=== PATIENT | male | born 1935 | race Caucasian/White ===

== ENCOUNTER 2017-08-09 10:21 | Day surgery (SDC) | payer MEDICARE, BC ==
[2017-08-09] MEDS ORDERED: Lactated Ringer's 1,000 ML IV ONE (11:20)
[2017-08-09] MEDS ORDERED: Lidocaine 2% MPF (5 ml) Inj ONE (12:08)
[2017-08-09] MEDS ORDERED: Propofol 10 mg/ml Inj (20 ML) ONE (12:08)
[2017-08-09 12:48] VITALS: BP 122/65; PULSE 69; RESP 22; TEMP 97; O2SAT 100
== END 2017-08-09 12:50 | disposition home or self-care (01) ==
LOC: H.ENDO 10:21
PROVIDERS: ATTEND Internal Medicine Gastroenterology
DX: K30 Functional dyspepsia (principal); E78.5 Hyperlipidemia, unspecified; K31.9 Disease of stomach and duodenum, unspecified; R63.0 Anorexia; R63.4 Abnormal weight loss
CPT/HCPCS: 43239; 88305; J2704; J7120

== ENCOUNTER 2017-09-12 16:28 | Emergency (ER) | payer MEDICARE, BC ==
[2017-09-12 16:54] VITALS: BP 177/70; PULSE 67; RESP 16; TEMP 97.8; O2SAT 100
[2017-09-12] MEDS ORDERED: Iohexol 240 (50 ml) PO ONE (18:44)
[2017-09-12] MEDS ORDERED: Sodium Chloride 0.9% 500 ML IV STA (18:44)
--- NOTE | 2017-09-12 18:47 | ED PDOC ---
HPI: Abdomen Time Seen by Provider: 09/12/17 18:22 Chief Complaint (Nursing): Abdominal Pain Chief Complaint (Provider): Abd pain History Per: Patient History/Exam Limitations: no limitations Onset/Duration Of Symptoms: Days (2 weeks) Current Symptoms Are (Timing): Still Present Additional Complaint(s): Abd pain for 2 weeks off and on left lower. Feels like gas. Started after his colonoscopy by Dr. Thomas. Pt. denies nausea, vomit, diarrhea, weakness, chest pain, dyspnea. No back pain. No weakness. No fever. Past Medical History Reviewed: Nursing Documentation, Vital Signs Vital Signs: Last Vital Signs Temp 97.8 F 09/12/17 16:52 Pulse 67 09/12/17 16:52 Resp 16 09/12/17 16:52 BP 177/70 H 09/12/17 16:52 Pulse Ox 100 09/12/17 22:49 - Medical History PMH: HTN - Surgical History Other surgeries: colonoscopy - Family History Family History: States: Unknown Family Hx - Living Arrangements Living Arrangements: With Family - Social History Alcohol: None Drugs: Denies - Home Medications Home Medications: Ambulatory Orders Medication Instructions Recorded Losartan [Cozaar] 1 tab PO DAILY 08/09/17 Metoprolol Succinate [Toprol XL] 1 tab PO DAILY 08/09/17 Prednisolone [Millipred] 1 tab PO DAILY 08/09/17 Valsartan [Diovan] 1 tab PO DAILY 08/09/17 amLODIPine [Norvasc] 1 tab PO DAILY 08/09/17 - Allergies Allergies/Adverse Reactions: Allergies Allergy/AdvReac Type Severity Reaction Status Date / Time No Known Allergies Allergy Verified 09/12/17 16:52 Review of Systems ROS Statement: Except As Marked, All Systems Reviewed And Found Negative Gastrointestinal: Positive for: Abdominal Pain Physical Exam - Reviewed Nursing Documentation Reviewed: Yes Vital Signs Reviewed: Yes - Physical Exam Appears: Positive for: Non-toxic, No Acute Distress Head Exam: Positive for: ATRAUMATIC, NORMAL INSPECTION, NORMOCEPHALIC Skin: Positive for: Normal Color, Warm, DRY Eye Exam: Positive for: EOMI, Normal appearance, PERRL ENT: Positive for: Normal ENT Inspection Neck: Positive for: Normal, Painless ROM Cardiovascular/Chest: Positive for: Regular Rate, Rhythm Respiratory: Positive for: CNT, Normal Breath Sounds Gastrointestinal/Abdominal: Positive for: Bowel Sounds, Soft, Tenderness (LLQ) Back: Positive for: Normal Inspection. Negative for: L CVA Tenderness, R CVA Tenderness Extremity: Positive for: Normal ROM. Negative for: Tenderness, Pedal Edema Neurologic/Psych: Positive for: Alert, Oriented - Laboratory Results Result Diagrams: 09/12/17 19:24 09/12/17 19:23 Interpretation Of Abn Labs: no acute - ECG O2 Sat by Pulse Oximetry: 100 Pulse Ox Interpretation: Normal - Progress ED Course And Treament: 2247: Stable. AAOx3. Cholelithiasis. Will get US. 2348: Stable. AAOx3. Pain free. Tolerated po. Fu with pcp and gi. Disposition - Clinical Impression Clinical Impression: Abdominal pain, Gallstone - Patient ED Disposition Is Patient to be Admitted: No Counseled Patient/Family Regarding: Studies Performed, Diagnosis, Need For Followup - Disposition Referrals: [facility] [Outside] - 09/13/17 Adonay Blankenship MD [Staff Provider] - 09/13/17 Disposition: Routine/Home Disposition Time: 23:39 Condition: STABLE Additional Instructions: Return if not better in 3 days. Instructions: Acute Abdominal Pain (ED), Gallstones (ED)
[2017-09-12] MEDS ORDERED: Iohexol 240 (50 ml) ONE (18:57)
[2017-09-12 19:25] LABS: BASO # 0.1 K/uL (0.0-0.2); BASO % 0.7 % (0.0-2.0); EOS % 0.3 % (0.0-4.0); HEMOGLOBIN 10.5 g/dL (12.0-18.0); LYMPH # 1.2 K/uL (1.0-4.3); LYMPH % 13.5 % (20.0-40.0); MEAN CELL VOLUME 91.5 fl (80.0-94.0); MEAN CORPUSCULAR HEMOGLOBIN 32.4 pg (27.0-31.0); MEAN CORPUSCULAR HGB CONC 35.4 g/dL (33.0-37.0); MEAN PLATELET VOLUME 8.9 fl (7.2-11.7); MONO # 0.6 K/uL (0.0-0.8); MONO % 6.9 % (0.0-10.0); NEUT # 6.8 K/uL (1.8-7.0); NEUT % 78.6 % (50.0-75.0); NRBC % 0.1 % (0.0-0.0); RBC 3.26 Mil/uL (4.40-5.90); RED CELL DISTRIBUTION WIDTH 16.1 % (11.5-14.5); WHITE BLOOD COUNT 8.7 K/uL (4.8-10.8)
[2017-09-12 19:35] LABS: ALB/GLOB RATIO 1.4 (1.0-2.1); ALBUMIN 4.3 g/dL (3.5-5.0); ALT/SGPT 40 U/L (21-72); AST/SGOT 33 U/L (17-59); BLOOD UREA NITROGEN 17 mg/dl (9-20); CALCIUM 9.4 mg/dL (8.4-10.2); GFR AFRICAN-AMERICAN > 60; GFR NON-AFRICAN AMERICAN > 60
[2017-09-12] MEDS ORDERED: Iohexol 300 100 ML IJ ONE (20:48)
[2017-09-12] MEDS ORDERED: Sodium Chloride 0.9% 50 ML IV ONE (20:49)
--- NOTE | 2017-09-12 22:51 | CT ---
EXAM: CT Abdomen and Pelvis With Intravenous Contrast CLINICAL HISTORY: 81 years old, male; Pain; Abdominal pain; Generalized; Patient HX: Colonoscopy about 2 weeks ago; Additional info: Abd pain. Sent phy. Doc. TECHNIQUE: Axial computed tomography images of the abdomen and pelvis with intravenous contrast. All CT scans at this facility use one or more dose reduction techniques, viz.: automated exposure control; ma/kV adjustment per patient size (including targeted exams where dose is matched to indication; i.e. head); or iterative reconstruction technique. Coronal and sagittal reformatted images were created and reviewed. CONTRAST: 90 mL of [id number] administered intravenously. COMPARISON: No relevant prior studies available. FINDINGS: Lower thorax: Mild centrilobular emphysema. Mild cardiomegaly. ABDOMEN: Liver: Unremarkable. No mass. Gallbladder and bile ducts: Cholelithiasis. Gallstone in gallbladder neck. No ductal dilation. Pancreas: Unremarkable. No mass. No ductal dilation. Spleen: Unremarkable. No splenomegaly. Adrenals: Unremarkable. No mass. Kidneys and ureters: Bilateral renal cysts. Largest cyst on the right measuring 2.4 CM. Stomach and bowel: Sigmoid diverticulosis. Fluid filled rectum. Appendix: No findings to suggest acute appendicitis. PELVIS: Bladder: Unremarkable. No mass. Reproductive: Enlarged prostate. ABDOMEN and PELVIS: Intraperitoneal space: Unremarkable. No free air. No significant fluid collection. Bones/joints: Diffuse spinal degenerative changes. Scoliosis. Moderate osteoarthritis right and left hips. No acute fracture. No dislocation. Soft tissues: Unremarkable. Vasculature: Unremarkable. No abdominal aortic aneurysm. Lymph nodes: Unremarkable. No enlarged lymph nodes. IMPRESSION: 1. Cholelithiasis. Gallstone in gallbladder neck. Right upper quadrant ultrasound can be performed, if clinically warranted. 2. Sigmoid diverticulosis. 3. Fluid in rectum, may be indicative of enteritis/diarrhea. Correlate clinically. 4. Remainder of findings as above.
--- NOTE | 2017-09-13 00:04 | US ---
EXAM: US Abdomen Limited, Right Upper Quadrant CLINICAL HISTORY: 81 years old, male; Pain; Abdominal pain; Epigastric; Additional info: Gall bladder eval TECHNIQUE: Real-time ultrasound of the right upper quadrant with image documentation. COMPARISON: CT - ABD PELVIS PO IV CONTRAST 2017-09-12 21:18 FINDINGS: Limitations: Study limited due to patient's body habitus. Liver: Liver measures 12.4 CM longitudinally. No discrete mass. Increased echogenicity consistent with hepatic steatosis. Portal vein is patent with normal direction of flow. No intrahepatic bile duct dilation. Gallbladder: Gallbladder is contracted and contains multiple stones. No gallbladder wall thickening. No sonographic Haley sign. Common bile duct: Common bile duct measures 4 mm. No stones. No dilation. Pancreas: Unremarkable as visualized. Right kidney: Right kidney measures 8.9 CM longitudinally. 2.7 CM right midpole renal cyst. No stones. No hydronephrosis. IMPRESSION: 1. Gallbladder contracted and containing gallstones. 2. Remainder of findings as above.
== END 2017-09-13 00:20 | disposition home or self-care (01) ==
LOC: H.ER 16:28
DX: K80.20 Calculus of gallbladder without cholecystitis without obstruction (principal); I10 Essential (primary) hypertension
CPT/HCPCS: 74177; 76705; 80053; 84484; 85025; 99284; J7040; Q9966; Q9967